=== PATIENT | male | born 1990 | race Caucasian/White ===

== ENCOUNTER 2022-11-25 14:01 | Emergency (ER) | payer BC, SELFPAY ==
[2022-11-25 14:15] VITALS: BP 147/87; PULSE 84; RESP 16; TEMP 36.9; O2SAT 100
[2022-11-25 14:16] VITALS: BP 147/87; PULSE 84; RESP 16; TEMP 36.9; O2SAT 100
--- NOTE | 2022-11-25 14:55 | ED.EYEPROB ---
HPI - Eye Problem General Chief complaint: Eye Problems Stated complaint: R EYE REDNESS/IRRITATION Time Seen by Provider: 11/25/22 14:50 Source: patient, RN notes reviewed and old records reviewed Mode of arrival: ambulatory Limitations: no limitations History of Present Illness HPI Narrative: 32-year-old male presents to the [facility] with red eye and irritation to the right eye since Monday, 5 days. Has used and eyedrops to help with sensation. Denies any blurry vision or change in vision. Denies any discharge. Denies any trauma Related Data Allergies Allergy/AdvReac Type Severity Reaction Status Date / Time No Known Allergies Allergy Unknown Unverified 11/25/22 14:15 Review of Systems Review of Systems: All systems reviewed & are unremarkable except as noted in HPI and below Constitutional: Constitutional: Reports no additional constitutional complaints Eyes: Eyes: Reports as per HPI ENT: Reports system reviewed and no additional complaints, except as documented Cardiovascular: Cardiovascular: Reports no additional cardiovascular complaints, Denies chest pain and Denies dyspnea Respiratory: Respiratory: Reports no additional respiratory complaints, Denies chest congestion, Denies cough and Denies dyspnea Gastrointestinal: Gastrointestinal: Reports no additional gastrointestinal complaints, Denies abdominal pain, Denies nausea and Denies vomiting Musculoskeletal: Musculoskeletal: Reports no additional musculoskeletal complaints Integumentary/Breasts: Skin/Breast: Reports system reviewed and no additional complaints, except as docu Neurologic: Reports system reviewed and no additional complaints, except as documented Psychiatric: Psychiatric: Reports no additional psychiatric complaints Allergic/Immunologic: Allergic/Immunologic: Reports no additional allergic/immunologic complaints PMFSH Past Medical History Medical History BMI 23.0-23.9, adult Encounter for wellness examination in adult Laceration of face Mild intermittent asthma in adult without complication Seasonal allergic rhinitis Sterilization consult Social History Social History Smoking status: Never smoker Alcohol intake: current Substance use: never Substance use type: does not use Comments At the time of my signature, I reviewed and agree with the nursing past medical, surgical, social, and family history. There is no relevant family history pertinent to the patient complaint. Exam Const: General: cooperative, healthy appearing, comfortable, no acute distress, well developed, alert and well nourished Nutritional Appearance: well nourished Orientation/consciousness: patient oriented x3 Limitations: no limitations HENMT: Head: normal to inspection Ears: hearing grossly normal bilaterally and external ears normal Face/Nose/Sinus: Normal external nose present, Normal nares present, Normal nasal mucous membranes and turbinates present and normal facial exam Face and sinus: normal facial exam Mouth: Yes Normal oral and palatal mucosa present, Yes lip normal and Yes moist mucous membranes Throat: posterior oropharynx normal and uvula midline Eyes: General: appearance normal, both eyes and all related structures Alignment and Position: alignment normal Periorbital: periorbital findings normal Eyelids: eyelids normal Conjunctivae: conjunctivae normal Cornea: corneas normal Pupils: Equal, round and reactive pupils present EOM: EOMs intact bilaterally Other: scleral slightly pink, bloodshot eyes. No increased erythema to conjunctiva. No discharge. Neck: Neck: normal visual inspection, full ROM, no lymphadenopathy and no meningeal signs Chest: Chest palpation & inspection: normal inspection of the chest Resp: Effort & Inspection: normal respiratory effort and able to speak in complete sentences Auscultation: clear
== END 2022-11-25 15:01 | disposition home or self-care (01) ==
PROVIDERS: Emergency Provider Nurse Practitioner; PCP Family Medicine
DX: H57.11 Ocular pain, right eye (principal); H57.89 Other specified disorders of eye and adnexa
CPT/HCPCS: 99213; G0463

== ENCOUNTER 2023-12-13 19:42 | Emergency (ER) | payer BC, SELFPAY ==
--- NOTE | ~2023-12-13 | XR_ITS ---
XR knee LT 3V DATE: 12/13/2023 20:10 INDICATION: Patient twisted knee and felt a pop. TECHNIQUE: 3 views COMPARISON: None FINDINGS: No fracture or dislocation or joint effusion. No periosteal reaction or bone destruction. Joint spaces are well preserved. No radiopaque intra-articular loose body or chondrocalcinosis. IMPRESSION: Negative Reviewed, dictated and finalized at location A. IMPRESSION: Negative
[2023-12-13 19:43] VITALS: BP 137/107; PULSE 81; RESP 18; TEMP 36.4; O2SAT 100
--- NOTE | 2023-12-13 20:04 | ED.GENADULT ---
HPI - General Adult General Chief complaint: Extremity Injury, Lower Stated complaint: left leg pain Time Seen by Provider: 12/13/23 19:52 History of Present Illness HPI narrative: This is a 33-year-old male presenting with left knee pain. Patient was slide tackled by a small child and when he put his weight on left leg he developed pain over the medial portion. Patient has been ambulatory since the incident. He took Motrin with some relief. No sliding, popping or joint laxity. Related Data Home Medications Medication Instructions Recorded Confirmed loratadine 10 mg tablet (Claritin) 10 mg PO DAILY PRN allergic 11/15/23 symptoms Allergies Allergy/AdvReac Type Severity Reaction Status Date / Time No Known Allergies Allergy Unknown Unverified 11/25/22 14:15 [facility] Past Medical History Medical History (Updated 12/13/23 @ 20:09 by Chad Barragan MD) Allergic conjunctivitis BMI 23.0-23.9, adult BMI 25.0-25.9,adult Encounter for wellness examination in adult Laceration of face Mild intermittent asthma in adult without complication Seasonal allergic rhinitis Sterilization consult Social History Social History (Updated 11/15/23 @ 13:14 by Stephanie Gordon MA) Smoking status: Never smoker Alcohol intake: current Alcohol use details: rare Substance use: never Substance use type: does not use Current Housing: Decline to Answer Concerned About Future Housing: Decline to Answer Difficulty Paying Gas/Electric Bills: Decline to Answer Difficulty Paying for Meds: Decline to Answer Currently Unemployed: Decline to Answer Education: Decline to Answer Difficulty w/ Childcare or Family Care: Decline to Answer Exam Narrative: APPEARANCE: No apparent distress. Head: atraumatic. EYES: EOMI, NOSE: Atraumatic NECK: Trachea midline RESPIRATORY: No increased rate of breathing CARDIOVASCULAR: RRR, ABDOMINAL: Non-distended MUSCULOSKELETAl: focal exam of the of left knee reveals no obvious deformity bruising or swelling. No pain with active and passive range of motion. No tenderness varus and valgus stress. Neurovascularly intact. NEURO: Alert. Moving 4/4 extremities SKIN:: Warm, dry. Normal color PSYCHIATRIC: Normal affect Course Vital Signs Vital signs: Vital Signs Temperature 97.5 F L 12/13/23 19:43 Pulse Rate 81 12/13/23 19:43 Respiratory Rate 18 12/13/23 19:43 Blood Pressure 137/107 H 12/13/23 19:43 Pulse Oximetry 100 12/13/23 19:43 Oxygen Delivery Room Air 12/13/23 19:43 Temperature 97.5 F L 12/13/23 19:43 Pulse Rate 81 12/13/23 19:43 Respiratory Rate 18 12/13/23 19:43 Blood Pressure 137/107 H 12/13/23 19:43 Pulse Oximetry 100 12/13/23 19:43 Oxygen Delivery Room Air 12/13/23 19:43 Medical Decision Making MDM Narrative Medical decision making narrative: -Course: 33-year-old presenting with knee pain. X-ray negative for fracture. Physical exam unremarkable. Patient discharged with NSAIDs and primary care follow-up. -DDX includes but is not limited to: Knee sprain, contusion, internal derangement, fracture -Independent interpretation of studies: x-ray negative for bony fracture -Interventions: Tylenol -Shared decision making / Disposition: discharged -RX Motrin Tylenol Vital Signs Vital Signs: Vital Signs Temperature 97.5 F L 12/13/23 19:43 Pulse Rate 81 12/13/23 19:43 Respiratory Rate 18 12/13/23 19:43 Blood Pressure 137/107 H 12/13/23 19:43 Pulse Oximetry 100 12/13/23 19:43 Oxygen Delivery Room Air 12/13/23 19:43 Temperature 97.5 F L 12/13/23 19:43 Pulse Rate 81 12/13/23 19:43 Respiratory Rate 18 12/13/23 19:43 Blood Pressure 137/107 H 12/13/23 19:43 Pulse Oximetry 100 12/13/23 19:43 Oxygen Delivery Room Air 12/13/23 19:43 Discharge Plan Discharge Clinical Impression: Acute knee pain Patient Disposition: Home, Self-Care Condition: Stable In
--- NOTE | 2024-01-17 11:04 | PC.NURSE ---
LATE ENTRY Initial Assessment states pt injured right lower extremity. This was a mistaken entry. Pt injured left lower extremity.
== END 2023-12-13 20:32 | disposition home or self-care (01) ==
PROVIDERS: Emergency Provider Emergency Medicine; PCP Family Medicine
DX: S89.92XA Unspecified injury of left lower leg, initial encounter (principal); W03.XXXA Other fall on same level due to collision with another person, initial encounter
CPT/HCPCS: 73562; 99283

== ENCOUNTER 2025-04-18 12:46 | Emergency (ER) | payer BC, SELFPAY ==
--- NOTE | 2025-04-18 12:51 | ED.URI ---
HPI - URI/Sore Throat General Chief Complaint: Upper Respiratory Infection Stated Complaint: Sore Throat/Chills Time Seen by Provider: 04/18/25 12:53 Source: patient, RN notes reviewed and old records reviewed Mode of arrival: ambulatory Limitations: no limitations History of Present Illness HPI Narrative: 35-year-old male presents to the [facility] with complaints Monday night started after he ate dinner an upset stomach and generalized not feeling well. States Monday it was better, Monday and today has had increased sore throat, chills and body aches. No treatment prior to arrival. Patient was to make sure that he is better by the weekend. Related Data Home Medications ?Medication ?Instructions ?Recorded ?Confirmed ?Last Taken ?Type No Home Medications 04/18/25 04/18/25 Unknown History Allergies Allergy/AdvReac Type Severity Reaction Status Date / Time No Known Allergies Allergy Unknown Unverified 04/18/25 13:01 Review of Systems Review of Systems: All systems reviewed & are unremarkable except as noted in HPI and below Constitutional: Constitutional: Reports no additional constitutional complaints ENT: Reports as per HPI and Reports sore throat Cardiovascular: Cardiovascular: Reports no additional cardiovascular complaints, Denies chest pain and Denies dyspnea Respiratory: Respiratory: Reports no additional respiratory complaints, Denies chest congestion, Denies cough and Denies dyspnea Musculoskeletal: Musculoskeletal: Reports no additional musculoskeletal complaints Integumentary/Breasts: Skin/Breast: Reports system reviewed and no additional complaints, except as docu PMFSH Past Medical History Medical History BMI 24.0-24.9, adult Neoplasm of skin of scalp 0.4 cm pedunculated left parietal scalp lesion. 0.2 cm pearly papule occipital scalp. BMI 25.0-25.9,adult Allergic conjunctivitis BMI 23.0-23.9, adult Mild intermittent asthma in adult without complication Seasonal allergic rhinitis Sterilization consult Encounter for wellness examination in adult Laceration of face Social History Social History Smoking status: Never smoker Alcohol intake: current Alcohol use details: rare Substance use: never Substance use type: does not use Current Housing: Decline to Answer Concerned About Future Housing: Decline to Answer Difficulty Paying Gas/Electric Bills: Decline to Answer Difficulty Paying for Meds: Decline to Answer Currently Unemployed: Decline to Answer Education: Decline to Answer Difficulty w/ Childcare or Family Care: Decline to Answer Comments At the time of my signature, I reviewed and agree with the nursing past medical, surgical, social, and family history. There is no relevant family history pertinent to the patient complaint. Exam Const: General: cooperative, healthy appearing, comfortable, no acute distress, well developed, alert and well nourished Nutritional Appearance: well nourished Orientation/consciousness: patient oriented x3 Limitations: no limitations HENMT: Head: normal to inspection Ears: hearing grossly normal bilaterally, external ears normal, TM's normal bilaterally, EAC's normal, mastoids normal and no periauricular adenopathy Face and sinus: normal facial exam and face symmetric Mouth: Yes Normal oral and palatal mucosa present, Yes lip normal, Yes tongue normal and Yes moist mucous membranes Throat: posterior oropharynx normal, uvula midline and no uvular edema Eyes: General: appearance normal, both eyes and all related structures Alignment and Position: alignment normal Neck: Neck: normal visual inspection, full ROM, no lymphadenopathy and no meningeal signs Chest: Chest palpation & inspection: normal inspection of the chest Resp: Effort & Inspection: normal respiratory effort and able to speak in complete sentences Auscultation: clear to auscultation bilaterally, no crackles, no rales, no rhonchi and no wheezes Cardio: Rate: regular rate Skin: General skin exam: normal color and no rashes or lesions noted Neuro: General: patient oriented x3, gait normal, moves all extremities and no meningeal signs Cognition (Neuro): normal cognition Speech: normal speech Gait exam (Neuro): Normal gait present Extrem: General: normal to inspection, full ROM, capillary refill normal and normal gait Psych: Appearance: grossly normal and well kempt Mental Status: mental status grossly normal Speech and movement: Normal speech and movement present and Clear speech present Affect: normal affect Attitude: cooperative Course Course Level of Care: Express Care Visit Vital Signs Vital signs: Vital Signs Temperature 97.6 F 04/18/25 12:53 Pulse Rate 68 04/18/25 12:53 Respiratory Rate 18 04/18/25 12:53 Blood Pressure 129/88 04/18/25 12:53 Pulse Oximetry 100 04/18/25 12:53 Oxygen Delivery Room Air 04/18/25 12:53 Temperature 97.6 F 04/18/25 12:53 Pulse Rate 68 04/18/25 12:53 Respiratory Rate 18 04/18/25 12:53 Blood Pressure 129/88 04/18/25 12:53 Pulse Oximetry 100 04/18/25 12:53 Oxygen Delivery Room Air 04/18/25 12:53 Reviewed MDM - URI/Sore Throat MDM Narrative Medical decision making narrative: Patient sitting in exam room. Patient is nontoxic, vitals stable. Patient presents with URI symptoms Strep test negative Patient appropriate for outpatient treatment with [id number] products Discharge instructions reviewed with patient, as well as provided in writing per nursing staff. The instructions also include specific and strict return/GO TO THE ER as well as f/u information. All questions have been answered, and the patient deny any further questions with discharge and discharge plan. Some parts of this dictation were generated by voice recognition software and may contain typographical and/or grammatical inaccuracies. Differential Diagnosis Differential diagnosis: Likely upper respiratory infection, otitis media, sinusitis, viral infection, bronchitis, influenza and pharyngitis Lab Data Labs: Lab Results 04/18/25 Range/Units 13:12 POC Grp A Strep Screen Negative (Negative) Reviewed Critical Care Time Critical Care Time Critical Care Time: No Discharge Plan Discharge Clinical Impression: Upper respiratory infection Qualifiers: URI type: unspecified viral URI Qualified Code(s): J06.9 - Acute upper respiratory infection, unspecified Pharyngitis Qualifiers: Pharyngitis/tonsillitis etiology: unspecified etiology Qualified Code(s): J02.9 - Acute pharyngitis, unspecified Patient Disposition: Home Condition: Stable Instructions: Antibiotic Form, Pharyngitis (ED), Viral Syndrome (ED) Additional Instructions: Your rapid strep swab was negative today at [facility]. A throat culture will be sent to the laboratory for further testing. If the test is positive, you will receive a phone call within 48 hours and an appropriate antibiotic will be initiated at that time. Your symptoms are likely due to a viral illness, which is not treated with antibiotics. Typically viral infections last 7-10 days, can linger for couple of weeks. It is very important to treat your symptoms. Drink plenty of water, Gatorade, Pedialyte, ice pops or Jell-O. -Alternate Tylenol and Motrin per package directions for fever or pain. You can alternate every 4 hours -Antihistamine medication such as Zyrtec/Claritin/Salma during the day can help improve symptoms. -doing daily nasal irrigations can help relieve pressure your sinuses. Things like a Neti pot -Use Flonase twice a day for 5 days then daily to help reduce the inflammation and dry up your sinuses. -You can also use Mucinex. Be sure to drink plenty of water with this medication at least 8 ounces with every dose and it is important to drink 8 to 10 glasses of water per day. Water is a natural decongestant -Eat and drink things that are easy to swallow, like tea or soup, or popsicles. -Oral rinses such as: Salt water gargles and/or may use topical anesthetic (eg. Chloraseptic spray) or lozenges to relieve dryness or throat pain). -Frequent hand washing or hand ssn/ssbn weapons equipment operator is one of the best ways to prevent spread of infection. -Using a vaporizer or humidifier at night will also help thin secretions and help with coughing up phlegm. -Follow up with primary care provider in 7-10 days if condition is not improving - For new or worsening symptoms go directly to the nearest ER Patient Language: [place] Prescriptions: No Action No Home Medications Follow-up/Referrals: PHYSICIAN,COASTAL AND ESTUARY SPECIALIST [Primary Care Provider, Internal Medicine] Stand Alone Forms: Work/School Release IP Time of Disposition: 13:12
[2025-04-18 12:53] VITALS: BP 129/88; PULSE 68; RESP 18; TEMP 36.4; O2SAT 100
[2025-04-18 13:14] LABS: EDSTREPNEGPOS1 Negative (Negative)
== END 2025-04-18 13:15 | disposition home or self-care (01) ==
PROVIDERS: Emergency Provider Nurse Practitioner
DX: J06.9 Acute upper respiratory infection, unspecified (principal); J02.9 Acute pharyngitis, unspecified; Z85.828 Personal history of other malignant neoplasm of skin
CPT/HCPCS: 87081; 87880; 99213; G0463